=== PATIENT | female | born 2000 | race Caucasian/White ===

== ENCOUNTER 2023-05-19 14:12 | Emergency (ER) | payer OTHER, SELFPAY ==
[2023-05-19 14:37] VITALS: BP 121/75; PULSE 83; RESP 18; TEMP 36.8; O2SAT 100
--- NOTE | 2023-05-19 14:48 | ED.EYEPROB ---
HPI - Eye Problem General Chief complaint: Eye Problems Stated complaint: lt eye irritation Time Seen by Provider: 05/19/23 14:18 Source: patient Mode of arrival: ambulatory Limitations: no limitations History of Present Illness HPI Narrative: 22-year-old female presents to [facility] complaints of irritation, redness, purulent drainage and matting to her left eye since yesterday. Patient does wear contacts but has since removed her contacts and threw them away. Patient is currently wearing glasses. Patient denies injury to her eye. Patient denies fever, body aches, chills, nausea, vomiting or diarrhea. MD chief complaint: eye pain and eye redness Onset (ago): day(s) (1) Location: left eye Eye Symptoms: redness, pain and discharge Associated symptoms: none Treatments Prior to Arrival: none Related Data Allergies Allergy/AdvReac Type Severity Reaction Status Date / Time No Known Allergies Allergy Verified 05/19/23 14:38 Review of Systems Constitutional: Constitutional: Denies chills, Denies fatigue, Denies fever(s) and Denies weakness Eyes: Comments: Left eye redness, irritation, drainage, matting ENT: Denies vertigo, Denies dizziness, Denies epistaxis and Denies nasal congestion Cardiovascular: Cardiovascular: Denies chest pain Respiratory: Respiratory: Denies cough, Denies dyspnea and Denies wheezing Gastrointestinal: Gastrointestinal: Denies diarrhea, Denies nausea and Denies vomiting Musculoskeletal: Musculoskeletal: Denies arthralgias and Denies joint swelling Integumentary/Breasts: Skin/Breast: Denies rash Neurologic: Denies dizziness, Denies syncope and Denies headache(s) PMFSH Comments At time of signature, I agree with nursing past medical, surgical, social and family history. There is no relevant family history pertinent to the presenting complaint. Exam Const: General: healthy appearing Nutritional Appearance: well nourished Orientation/consciousness: patient oriented x3 HENMT: Head: normal to inspection Mouth: Yes Normal oral and palatal mucosa present and Yes moist mucous membranes Teeth and gingiva: dentition normal Throat: posterior oropharynx normal and uvula midline Eyes: Pupils: Equal, round and reactive pupils present Direct Ophthalmoscopy: no photophobia Other: Erythema noted to left conjunctiva with mild amount of purulent drainage noted. No swelling noted Neck: Neck: normal visual inspection Resp: Effort & Inspection: normal respiratory effort, not labored and no retractions Auscultation: clear to auscultation bilaterally, no crackles, no rales and no rhonchi Cardio: Rate: regular rate Rhythm: regular rhythm Heart sounds: no murmurs Skin: General skin exam: normal color Rashes: no rashes Wounds: wound noted Neuro: General: patient oriented x3 Speech: normal speech Psych: Affect: normal affect Attitude: cooperative Course Course Level of Care: Express Care Visit Vital Signs Vital signs: Vital Signs Temperature 36.8 C 05/19/23 14:37 Pulse Rate 83 05/19/23 14:37 Respiratory Rate 18 05/19/23 14:37 Blood Pressure 121/75 05/19/23 14:37 Pulse Oximetry 100 05/19/23 14:37 Oxygen Delivery Room Air 05/19/23 14:37 Temperature 36.8 C 05/19/23 14:37 Pulse Rate 83 05/19/23 14:37 Respiratory Rate 18 05/19/23 14:37 Blood Pressure 121/75 05/19/23 14:37 Pulse Oximetry 100 05/19/23 14:37 Oxygen Delivery Room Air 05/19/23 14:37 MDM - Eye Problem MDM Narrative Medical decision making narrative: Instructed patient to continue to wear glasses until symptoms are resolved. Instructed patient to dispose of eye makeup. Instructed patient to use eyedrops as prescribed and to follow-up with eye doctor if symptoms not improve Differential Diagnosis Differential diagnosis: Likely corneal abrasion and subconjunctival hemorrhage Critical Care Time Critical Care Time Critical Care Time: No Discharge Plan Discharge Cli
== END 2023-05-19 14:56 | disposition home or self-care (01) ==
PROVIDERS: Emergency Provider Nurse Practitioner Family; PCP Hospitalist
DX: H10.32 Unspecified acute conjunctivitis, left eye (principal)
CPT/HCPCS: 99213; G0463